=== PATIENT | female | born 1980 | race Caucasian/White ===

== ENCOUNTER 2023-05-15 15:23 | Emergency (ER) | payer OTHER ==
[2023-05-15 15:52] VITALS: TEMP 98.1; BMI 25.3
[2023-05-15 15:58] VITALS: BP 161/96; PULSE 68; RESP 18
[2023-05-15 17:00] LABS: HEMATOCRIT 44.2 % (32.4-45.2); HEMOGLOBIN 14.7 G/dL (10.7-15.3); MCH 29.6 pg (25.7-33.7); MCHC 33.2 g/dl (32.0-36.0); MEAN CELL VOLUME 89.2 fl (80-96); MEAN PLT VOLUME 8.5 fl (7.5-11.1); PLATELET COUNT 338.6 10^3/uL (134-434); RBC 4.96 10^6/uL (3.60-5.2); RDW 15.8 % (11.6-15.6); WHITE BLOOD COUNT 8.1 10^3/uL (4.0-10.8)
[2023-05-15 17:16] LABS: ALBUMIN 4.3 g/dl (3.4-5.0); BILIRUBIN,TOTAL 0.3 mg/dl (0.2-1); CALCIUM 9.8 mg/dl (8.5-10.1); CREATININE 0.7 mg/dl (0.6-1.3); POTASSIUM 3.8 mmol/L (3.5-5.1); TOT PROT 7.3 g/dl (6.4-8.2)
[2023-05-15 18:27] LABS: PLATELET ESTIMATE ADEQUATE
== END 2023-05-15 18:38 | disposition home or self-care (01) ==
LOC: FER 15:23
DX: R07.89 Other chest pain (principal)
CPT/HCPCS: 36415; 71046-TC-FY; 80053; 84484; 85027; 85379; 93005; 99285-25

== ENCOUNTER 2023-06-26 14:59 | Emergency (ER) | payer OTHER ==
[2023-06-26 15:04] VITALS: TEMP 98.4; BMI 28.8
[2023-06-26 16:13] LABS: BASO % 1.2 % (0-2.0); EOS % 0.8 % (0-4.5); HEMATOCRIT 41.3 % (32.4-45.2); HEMOGLOBIN 13.8 GM/dL (10.7-15.3); LYMPH % 22.5 % (8-40); MCHC 33.5 g/dl (32.0-36.0); MEAN CELL VOLUME 86.5 fl (80-96); MEAN PLT VOLUME 8.7 fl (7.5-11.1); MONO % 4.4 % (3.8-10.2); NEUT % 71.1 % (42.8-82.8); PLATELET COUNT 317 10^3/uL (134-434); RBC 4.77 M/mm3 (3.60-5.2); RDW 15.1 % (11.6-15.6); WHITE BLOOD COUNT 8.7 K/mm3 (4.0-10.0)
[2023-06-26 16:22] LABS: INR 0.98 (0.83-1.09); PROTHROMBIN TIME (PATIENT) 11.4 SEC (9.7-13.0)
[2023-06-26 16:24] LABS: ACTIVATED PTT 32.9 SECONDS (25.2-36.5)
[2023-06-26 16:30] LABS: POTASSIUM 4.3 mmol/L (3.5-5.1)
[2023-06-26 16:31] LABS: CALCIUM 9.1 mg/dL (8.5-10.1)
[2023-06-26 16:33] LABS: ALBUMIN 3.6 g/dl (3.4-5.0); BLOOD UREA NITROGEN 10.6 mg/dL (7-18); MAGNESIUM 2.1 mg/dL (1.8-2.4)
[2023-06-26 16:35] LABS: CREATININE 0.9 mg/dL (0.55-1.3)
[2023-06-26 16:36] LABS: BILIRUBIN,TOTAL 0.2 mg/dL (0.2-1); TOT PROT 7.8 g/dl (6.4-8.2)
[2023-06-26 17:05] VITALS: BP 142/79; PULSE 71; RESP 16
== END 2023-06-26 17:05 | disposition home or self-care (01) ==
LOC: JER 14:59
DX: R07.2 Precordial pain (principal)
CPT/HCPCS: 36415; 80053; 83735; 84443; 84484; 85025; 85610; 85730; 93005; 93010; 99284-25